=== PATIENT | male | born 1990 | race American Indian/Alaskan Native ===

== ENCOUNTER 2016-09-11 16:55 | Emergency (ER) | payer OTHER ==
[2016-09-11 17:05] VITALS: BP 110/79; PULSE 71; TEMP 97.9; BMI 20.3
--- NOTE | 2016-09-11 19:58 | PDOC ---
History of Present Illness - General Chief Complaint: Pain Stated Complaint: ABD PAIN Time Seen by Provider: 09/11/16 19:43 History Source: Patient Exam Limitations: No Limitations - History of Present Illness Initial Comments: 09/11/16 20:11 Chief complaint: Left groin pain Shouldn't 26-year-old male is complaining on and off left groin pain for 5-6 months, saw his doctor a while ago, has had no imaging. Who states that when he came to the ER earlier today it was an 8 out of 10, now a 2 out of 10. Patient states it does get worse when he moves around although it never goes away. No fever, nausea or vomiting, denies any dysuria, does state that it goes to his testicle. No discharge. Last bowel movement yesterday without any difficulty, no rectal bleeding. GENERAL/CONSTITUTIONAL: No fever, weakness. dizziness HEAD, EYES, EARS, NOSE AND THROAT: No change in vision. No ear pain or discharge. No sore throat. CARDIOVASCULAR: No chest pain RESPIRATORY: No shortness of breath or cough GASTROINTESTINAL: +pain, no: nausea, vomiting, diarrhea or constipation GENITOURINARY: No dysuria MUSCULOSKELETAL: No neck or back pain SKIN: No rash NEUROLOGIC: No headache, vertigo, loss of consciousness, or loss of sensation. GENERAL: The patient is awake, alert, and fully oriented, in no acute distress. HEAD: Normal with no signs of trauma. EYES: Pupils equal, round and reactive to light, sclera anicteric, conjunctiva clear. ENT: pharynx: no erythema, no exudate, uvula midline NECK: supple CHEST: clear, nontender, rr ABD: soft, + bowel sounds, left lower quadrant tenderness, going into the groin , Genital exam shows no tenderness, no erythema, no swelling and otherwise normal exam EXTREMITIES: Normal range of motion, no edema. NEUROLOGICAL: Normal speech, normal gait. SKIN: Warm, Dry 09/11/16 21:09 Past History - Past Medical History Allergies/Adverse Reactions: Allergies Allergy/AdvReac Type Severity Reaction Status Date / Time No Known Allergies Allergy Verified 09/11/16 17:02 Other medical history: none - Psycho/Social/Smoking Cessation Hx Anxiety: No Suicidal Ideation: No Smoking History: Never smoked Have you smoked in the past 12 months: No Information on smoking cessation initiated: No Hx Alcohol Use: No Drug/Substance Use Hx: No Substance Use Type: None *Physical Exam - Vital Signs Last Vital Signs Temp Pulse Resp BP Pulse Ox 97.9 F 71 16 110/79 100 09/11/16 17:02 09/11/16 17:02 09/11/16 17:02 09/11/16 17:02 09/11/16 17:02 ED Treatment Course - LABORATORY CBC & Chemistry Diagram: 09/11/16 19:59 09/11/16 19:59 Medical Decision Making - Medical Decision Making Patient with ongoing issues with abdominal pain, left groin, will check urine, ultrasound testicles to rule out any kind of pathology and fua. Labs are negative, patient remains comfortable, ultrasound showed a small epididymal cyst on the right side although the pain is on the left side, this result was discussed with patient. F UA showed a lot of stool, this was discussed with patient, dietary changes and use of medication to move stool along. He will follow-up with his doctor, otherwise labs are stable and no indication for further evaluation or imaging. *DC/Admit/Observation/Transfer Diagnosis at time of Disposition: Left groin pain Constipation Qualifiers: Constipation type: unspecified constipation type Qualified Code(s): K59.00 - Constipation, unspecified - Discharge Dispostion Disposition: HOME Condition at time of disposition: Stable - Patient Instructions Printed Discharge Instructions: Constipation Additional Instructions: As discussed, there is a small epididymal cyst on the right side, which you should just know that it is there. You need to drink more water, eat less bread, rice, meat, eat more fruits and vegetables and if you want you can start taking MiraLAX every day, follow the instructions on the package. you should follow-up with your doctor.
[2016-09-11 20:12] LABS: BASOPHIL 0.5 % (0-2.0); EOSINOPHIL 1.2 % (0-4.5); MCH 28.3 pg (25.7-33.7); MEAN CELL VOLUME 85.8 fl (80-96); MEAN PLT VOLUME 10.1 fl (7.5-11.1); NEUTROPHILS 39.9 % (42.8-82.8); PLATELET COUNT 201 K/MM3 (134-434); WHITE BLOOD COUNT 10.6 K/mm3 (4.0-10.0)
[2016-09-11 20:19] LABS: URINE APPEARANCE SLCLOUDY; URINE BILIRUBIN NEGATIVE (NEGATIVE); URINE BLOOD NEGATIVE (NEGATIVE); URINE COLOR YELLOW; URINE GLUCOSE (UA) NEGATIVE (NEGATIVE); URINE KETONE NEGATIVE (NEGATIVE); URINE LEUK ESTERASE NEGATIVE (NEGATIVE); URINE NITRITE NEGATIVE (NEGATIVE); URINE PROTEIN NEGATIVE (NEGATIVE); URINE UROBILINOGEN NEGATIVE E.U./dl (0.2-1.0)
[2016-09-11 21:00] LABS: ALBUMIN 4.3 g/dl (3.4-5.0); ALK PHOS 88 U/L (45-117); ANION GAP 6 (8-16); BILIRUBIN,TOTAL 0.4 mg/dL (0.2-1.0); CALCIUM 8.6 mg/dL (8.5-10.1); CO2 28 mmol/L (21-32); CREATININE 0.8 mg/dL (0.7-1.3); GLUCOSE,RANDOM 65 mg/dL (74-106); SGOT/AST 19 U/L (15-37); SGPT/ALT 38 U/L (12-78)
== END 2016-09-11 21:36 | disposition home or self-care (01) ==
LOC: JER 16:55
DX: K59.00 Constipation, unspecified (principal)
CPT/HCPCS: 36415; 74020-TC; 76870-TC; 80053; 81003; 85025; 99283-25

== ENCOUNTER 2016-12-04 11:03 | Emergency (ER) | payer OTHER ==
[2016-12-04 11:15] VITALS: BP 125/88; PULSE 88; TEMP 98.2
[2016-12-04 12:06] LABS: URINE APPEARANCE CLEAR; URINE BILIRUBIN NEGATIVE (NEGATIVE); URINE BLOOD NEGATIVE (NEGATIVE); URINE COLOR LTYELLOW; URINE GLUCOSE (UA) NEGATIVE (NEGATIVE); URINE KETONE NEGATIVE (NEGATIVE); URINE LEUK ESTERASE NEGATIVE (NEGATIVE); URINE NITRITE NEGATIVE (NEGATIVE); URINE PROTEIN NEGATIVE (NEGATIVE); URINE UROBILINOGEN NEGATIVE E.U./dl (0.2-1.0)
--- NOTE | 2016-12-04 13:17 | PDOC ---
History of Present Illness - General Chief Complaint: Penile Drainage Stated Complaint: PAIN Time Seen by Provider: 12/04/16 11:57 History Source: Patient Exam Limitations: No Limitations - History of Present Illness Initial Comments: 12/04/16 14:39 Chief complaint: Penile pain Patient is a healthy 26-year-old male who states 3 months ago he injured his penis playing cricket he went to a urologist who stated that it needed time to heal and he should be better in several weeks. Since states that he doesn't have pain now except when he has an erection. He shouldn't doesn't remember what urologist he went to, no dysuria and no penile discharge. No testicular pain and otherwise feels well GENERAL/CONSTITUTIONAL: No fever, weakness. dizziness HEAD, EYES, EARS, NOSE AND THROAT: No change in vision. No ear pain or discharge. No sore throat. CARDIOVASCULAR: No chest pain RESPIRATORY: No shortness of breath or cough GASTROINTESTINAL: No pain, nausea, vomiting, diarrhea or constipation GENITOURINARY: No dysuria, + penile pain with erection MUSCULOSKELETAL: No neck or back pain SKIN: No rash NEUROLOGIC: No headache, vertigo, loss of consciousness, or loss of sensation. GENERAL: The patient is awake, alert, and fully oriented, in no acute distress. HEAD: Normal with no signs of trauma. EYES: Pupils equal, round and reactive to light, sclera anicteric, conjunctiva clear. ENT: pharynx: no erythema, no exudate, uvula midline NECK: supple CHEST: clear, nontender, rr ABD: soft, nontender Genitals: Testicles: Nonswollen, no erythema, nontender, no masses, normal exam of the penis, circumcised EXTREMITIES: Normal range of motion, no edema. NEUROLOGICAL: Normal speech, normal gait. SKIN: Warm, Dry Past History - Past Medical History Allergies/Adverse Reactions: Allergies Allergy/AdvReac Type Severity Reaction Status Date / Time No Known Allergies Allergy Verified 12/04/16 11:12 Home Medications: Ambulatory Orders NK [No Known Home Medication] 12/04/16 Other medical history: none - Psycho/Social/Smoking Cessation Hx Anxiety: No Suicidal Ideation: No Smoking History: Never smoked Have you smoked in the past 12 months: No Information on smoking cessation initiated: No Hx Alcohol Use: No Drug/Substance Use Hx: No Substance Use Type: None *Physical Exam - Vital Signs Last Vital Signs Temp Pulse Resp BP Pulse Ox 98.2 F 88 18 125/88 100 12/04/16 11:13 12/04/16 11:13 12/04/16 11:13 12/04/16 11:13 12/04/16 11:13 ED Treatment Course - ADDITIONAL ORDERS Additional order review: Laboratory Results 12/04/16 11:45 Urine Color Ltyellow Urine Appearance Clear Urine pH 6.0 Ur Specific [place] 1.025 Urine Protein Negative Urine Glucose (UA) Negative Urine Ketones Negative Urine Blood Negative Urine Nitrite Negative Urine Bilirubin Negative Urine Urobilinogen Negative Ur Leukocyte Esterase Negative Medical Decision Making - Medical Decision Making 12/04/16 14:40 Explained to patient why he needs to go back to her urologist to have further evaluation and they need to look inside again to see if they can find a reason for the pain, may be scar tissue. Patient understands. Explained to patient that we did testing for STDs and that if there is anything we will call them in a few days. UA is negative. Patient is asymptomatic except when he has an erection *DC/Admit/Observation/Transfer Diagnosis at time of Disposition: Penile pain - Discharge Dispostion Disposition: HOME Condition at time of disposition: Stable - Referrals Referrals: Vlad Eubanks MD [Primary Care Provider] - Manuel Zimmer MD., [Staff Physician] - - Patient Instructions Additional Instructions: It is very important for you to see the urologist again, you can see the one that you saw before or you can see the one listed here or one on your insurance. They will need to be further evaluation and testing done to determine why you still have the pain.
== END 2016-12-04 13:26 | disposition home or self-care (01) ==
LOC: JERFT 11:03
DX: N48.89 Other specified disorders of penis (principal)
CPT/HCPCS: 36415; 81003; 87086; 87491; 87591; 99281-25

== ENCOUNTER 2017-09-05 18:19 | Emergency (ER) | payer OTHER ==
--- NOTE | 2017-09-05 18:34 | PDOC ---
Rapid Medical Evaluation Time Seen by Provider: 09/05/17 18:33 Medical Evaluation: Allergies Allergy/AdvReac Type Severity Reaction Status Date / Time No Known Allergies Allergy Verified 12/04/16 11:12 09/05/17 18:33 I have performed a brief in-person evaluation of this patient. The patient presents with a chief complaint of: dropped printer to R foot yesterday Pertinent physical exam findings: ambulatory I have ordered the following: R foot x-ray The patient will proceed to the ED for further evaluation. Discharge Disposition - Diagnosis Foot injury - Referrals - Patient Instructions - Post Discharge Activity
[2017-09-05 18:35] VITALS: BP 131/71; PULSE 83; TEMP 98.8; BMI 22.2
--- NOTE | 2017-09-05 18:55 | PDOC ---
History of Present Illness - General Chief Complaint: Injury Stated Complaint: PAIN Time Seen by Provider: 09/05/17 18:33 History Source: Patient - History of Present Illness Occurred: reports: this afternoon Lower Extremity Pain Location: right: 1st toe Method of Injury: Yes: direct blow Past History - Past Medical History Allergies/Adverse Reactions: Allergies Allergy/AdvReac Type Severity Reaction Status Date / Time No Known Allergies Allergy Verified 09/05/17 18:34 Home Medications: Ambulatory Orders NK [No Known Home Medication] 12/04/16 COPD: No - Suicide/Smoking/Psychosocial Hx Smoking History: Never smoked Have you smoked in the past 12 months: No Hx Alcohol Use: No Drug/Substance Use Hx: No Substance Use Type: None Review of Systems - Review of Systems Constitutional: No: Chills, Fever Musculoskeletal: Yes: Joint Pain, Joint Swelling *Physical Exam - Vital Signs Last Vital Signs Temp Pulse Resp BP Pulse Ox 98.8 F 83 20 131/71 99 09/05/17 18:32 09/05/17 18:32 09/05/17 18:32 09/05/17 18:32 09/05/17 18:32 - Physical Exam General Appearance: Yes: Appropriately Dressed. No: Apparent Distress HEENT: positive: Normal Voice Neck: positive: Supple Respiratory/Chest: negative: Respiratory Distress Extremity: positive: Tender (w/ swelling and ecchymosis over R great MTP joint) Medical Decision Making - Medical Decision Making 09/05/17 18:54 87-year-old male here with right great toe pain and swelling after printer dropped onto foot at work today. Limping in ED. Patient well-appearing and stable in mild distress with ecchymosis and tenderness over dorsum of right first MTP joint. X-ray negative for fracture. Discharge with supportive treatment *DC/Admit/Observation/Transfer Diagnosis at time of Disposition: Foot sprain Qualifiers: Encounter type: initial encounter Laterality: right Qualified Code(s): S93.601A - Unspecified sprain of right foot, initial encounter - Discharge Dispostion Disposition: HOME Condition at time of disposition: Good - Referrals Referrals: Vlad Eubanks MD [Primary Care Provider] - - Patient Instructions Printed Discharge Instructions: DI for Foot Sprain Additional Instructions: X-ray was negative for fracture. Take motrin as needed for pain, ice for swelling, cane to assist w/ ambulation as needed - Post Discharge Activity
[2017-09-05] MEDS ORDERED: IBUPROFEN 400 MG TABLET (FP) PO ONE ×2 (19:17→19:18)
== END 2017-09-05 19:21 | disposition home or self-care (01) ==
LOC: JERFT 18:19
DX: S93.601A Unspecified sprain of right foot, initial encounter (principal); W20.8XXA Other cause of strike by thrown, projected or falling object, initial encounter; Y93.89 Activity, other specified; Y92.89 Other specified places as the place of occurrence of the external cause; Y99.0 Civilian activity done for income or pay
CPT/HCPCS: 73630-TC-RT; 99281-25

== ENCOUNTER 2018-12-26 22:10 | Emergency (ER) | payer OTHER ==
[2018-12-26 22:38] VITALS: BP 119/86; PULSE 90; TEMP 98.9; BMI 21.5
[2018-12-26] MEDS ORDERED: KETOROLAC TROMETHAMINE 30 MG/1 ML VIAL IM ONE (22:47)
[2018-12-26] MEDS ORDERED: KETOROLAC TROMETHAMINE 30 MG/1 ML VIAL ONE (22:49)
--- NOTE | 2018-12-26 23:06 | PDOC ---
History of Present Illness - General Chief Complaint: Pain Stated Complaint: NECK PAIN Time Seen by Provider: 12/26/18 22:30 History Source: Patient Exam Limitations: No Limitations - History of Present Illness Initial Comments: 12/26/18 23:00 28 yo male no pmhx here with c/o left lateral trapezial/ neck pain. started 3 - 4 days ago. denies trauma. no f/c did have viral uri recently. has been taking motrin 400 mg for pain with minimal relief. no weakness no numbness no other complaints. no mod factors. no h/;o prior neck injury or surgery. Past History - Past Medical History Allergies/Adverse Reactions: Allergies Allergy/AdvReac Type Severity Reaction Status Date / Time No Known Allergies Allergy Verified 09/05/17 18:34 Home Medications: Ambulatory Orders Diazepam [Valium] 5 mg PO Q8H PRN #15 tablet MDD 3 12/26/18 Ibuprofen [Motrin -] 600 mg PO TID PRN #90 tablet 12/26/18 COPD: No - Suicide/Smoking/Psychosocial Hx Smoking History: Never smoked Have you smoked in the past 12 months: No Hx Alcohol Use: No Drug/Substance Use Hx: No Substance Use Type: None Review of Systems - Review of Systems Constitutional: No: Diaphoresis, Fever HEENTM: No: Blurred Vision Respiratory: No: Orthopnea, Shortness of Breath ABD/GI: No: Abdominal Distended : No: Burning, Dysuria Musculoskeletal: Yes: Neck Pain All Other Systems: Reviewed and Negative *Physical Exam - Vital Signs Last Vital Signs Temp Pulse Resp BP Pulse Ox 98.9 F 90 16 119/86 97 12/26/18 22:10 12/26/18 22:10 12/26/18 22:10 12/26/18 22:10 12/26/18 22:10 - Physical Exam Comments: 12/26/18 23:01 awake alert no midline cervical spine tenderness. skin warm and dry. lungs clear bilat heart rrr nomrg abd soft ntnd. et wwp upper ext nuero test 5/5 all med./ ulnar/ radial nerve. elbow flex/ ext wrist flex/ ext all 5/5 sensation intact throughout palp muscle spasm left trapezius m. ED Treatment Course - Medications Given in the ED: ED Medications Discontinued Medications Generic Name Dose Route Start Last Admin Trade Name Freq PRN Reason Stop Dose Admin Ketorolac Tromethamine 30 mg 12/26/18 22:47 12/26/18 22:52 Toradol Injection - IM 12/26/18 22:48 30 mg ONCE ONE Administration Medical Decision Making - Medical Decision Making 12/26/18 23:02 28 yo male with left lateral trapezial spasm. no midline cervical spine tenderness. nuerologically intact. plan nsaid, m relaxer. topical analgesic such as eliot anna. dc home. *DC/Admit/Observation/Transfer Diagnosis at time of Disposition: Muscle spasm - Discharge Dispostion Disposition: HOME Condition at time of disposition: Improved Decision to Admit order: No - Prescriptions Prescriptions: Diazepam [Valium] 5 mg PO Q8H PRN #15 tablet MDD 3 PRN Reason: Pain Ibuprofen [Motrin -] 600 mg PO TID PRN #90 tablet PRN Reason: Pain - Referrals Referrals: Vlad Eubanks MD [Primary Care Provider] - - Patient Instructions Printed Discharge Instructions: DI for Muscle Strain, Torticollis Additional Instructions: you have a muscle spasm in your left trapezial muscle. you can take ibuprofen 600 mg very 8 hrs as needed for pain. take with food. you can also take a muscle relaxer, i have prescribed valium 5 mg. you can take this only as needed every [address] after taking medication or mix with other sedatives or alcohol as this medication can make you sleepy. followup with your regular docto call to schedule. return for muscle weakness, numbness or any concerns. you can also use topical creams such as Eliot Anna or [place] or icy hot to relieve muscle spasm pain. - Post Discharge Activity
== END 2018-12-26 23:10 | disposition home or self-care (01) ==
LOC: FER 22:10
PROC: 3E0233Z Introduction of Anti-inflammatory into Muscle, Percutaneous Approach (ICD-10-PCS; principal; 2018-12-26)
DX: M62.838 Other muscle spasm (principal)
CPT/HCPCS: 99282-25

== ENCOUNTER 2021-08-27 19:53 | Emergency (ER) | payer OTHER ==
[2021-08-27 20:00] VITALS: BP 129/78; PULSE 77; TEMP 98.3; BMI 22.2
[2021-08-27] MEDS ORDERED: KETOROLAC TROMETHAMINE 60 MG/2 ML VIAL IM ONE (20:11)
[2021-08-27] MEDS ORDERED: KETOROLAC TROMETHAMINE 60 MG/2 ML VIAL ONE (20:15)
== END 2021-08-27 20:44 | disposition home or self-care (01) ==
LOC: FER 19:53
PROC: 3E0233Z Introduction of Anti-inflammatory into Muscle, Percutaneous Approach (ICD-10-PCS; principal; 2021-08-27)
DX: M25.511 Pain in right shoulder (principal); G89.29 Other chronic pain
CPT/HCPCS: 99284-25